=== PATIENT | female | born 1985 | race Caucasian/White ===

== ENCOUNTER 2017-07-23 00:51 | Emergency (ER) | payer MEDICAID ==
--- NOTE | 2017-07-23 01:15 | EDM.PDOC ---
ED HPI GENERAL MEDICAL PROBLEM - General Chief Complaint: Abdominal Pain Stated Complaint: STOMACH PAINS Time Seen by Provider: 07/23/17 01:14 Source of Information: Reports: Patient, RN - History of Present Illness INITIAL COMMENTS - FREE TEXT/NARRATIVE: onset of lower abdominal pain and some discomfort with urination within the past 24 hours. no vomiting no fever she has had UTI before abdominal Pain Score (Numeric/FACES): 7 - Related Data Allergies Allergy/AdvReac Type Severity Reaction Status Date / Time acetaminophen [From Vicodin] Allergy Vomiting Verified 07/23/17 01:05 hydrocodone bitartrate Allergy Vomiting Verified 07/23/17 01:05 [From Vicodin] Home Meds: Home Meds . [No Known Home Meds] 06/07/15 [History] Past Medical History - Past Health History Medical/Surgical History: Denies Medical/Surgical History Social & Family History - Tobacco Use Smoking Status *Q: Current Every Day Smoker Years of Tobacco use: 9 - Recreational Drug Use Recreational Drug Use: No ED ROS GENERAL - Review of Systems Review Of Systems: See Below (as per HPI) ED EXAM, RENAL/ - Physical Exam Exam: See Below Text/Narrative:: alert no CVAT abdomen: minimal suprapubic tenderness non labored breathing non toxic appearance. Course - Vital Signs Last Recorded V/S: Last Vital Signs Temp 98.3 F 07/23/17 01:05 Pulse 96 07/23/17 01:05 Resp 16 07/23/17 01:05 BP 137/77 07/23/17 01:05 Pulse Ox 99 07/23/17 01:05 - Orders/Labs/Meds Labs: Laboratory Tests 07/23/17 Range/Units 01:15 Urine Color YELLOW Urine Appearance CLEAR Urine pH 6.0 (5.0-8.0) Ur Specific [place] 1.020 (1.001-1.035) Urine Protein 100 (NEGATIVE) mg/dL Urine Glucose (UA) NEGATIVE (NEGATIVE) mg/dL Urine Ketones NEGATIVE (NEGATIVE) mg/dL Urine Occult Blood NEGATIVE (NEGATIVE) Urine Nitrite NEGATIVE (NEGATIVE) Urine Bilirubin SMALL H (NEGATIVE) Urine Ictotest NEGATIVE Urine Urobilinogen 0.2 (<2.0) EU/dL Ur Leukocyte Esterase TRACE (NEGATIVE) Urine RBC 1-2 (0-2/HPF) Urine WBC 4-12 (0-5/HPF) Ur Epithelial Cells FEW (NONE-FEW) Amorphous Sediment FEW (NEGATIVE) Urine Bacteria 1+ H (NEGATIVE) Urine Mucus FEW (NONE-MOD) Meds: Medications Discontinued Medications Generic Name Dose Route Start Last Admin Trade Name Freq PRN Reason Stop Dose Admin Cephalexin 500 mg 07/23/17 01:53 Keflex PO 07/23/17 01:54 ONETIME ONE Departure - Departure Time of Disposition: 01:55 Disposition: Home, Self-Care 01 Condition: Good Clinical Impression: UTI (urinary tract infection) - Discharge Information Referrals: PCP,None [Primary Care Provider] - Forms: ED Department Discharge Additional Instructions: plenty of fluids recheck if not improving within 48 hours.
[2017-07-23] MEDS ORDERED: Cephalexin 500 MG Cap PO ONE (01:53)
[2017-07-23 02:48] VITALS: BP 122/75
== END 2017-07-23 02:05 | disposition home or self-care (01) ==
LOC: MW.ED 00:51
DX: N39.0 Urinary tract infection, site not specified (principal); F17.200 Nicotine dependence, unspecified, uncomplicated; Z88.6 Allergy status to analgesic agent; Z88.5 Allergy status to narcotic agent
CPT/HCPCS: 81001; 99284; A9270; 99282